=== PATIENT | male | born 1945 | race Caucasian/White ===

== ENCOUNTER 2017-10-30 10:42 | Emergency (ER) | payer BC, MEDICARE ==
[2017-10-30] MEDS ORDERED: ceFAZolin 1,000 MG VIAL IM STA (11:38)
[2017-10-30] MEDS ORDERED: LIDOCAINE 1% INJ 10MG/ML (20 ML MDV) SQ STA (11:47)
--- NOTE | 2017-10-30 12:28 | XR ---
EXAMINATION TYPE: XR finger RT DATE OF EXAM: 10/30/2017 COMPARISON: NONE HISTORY: Pain per order. TECHNIQUE: 3 views right fifth finger are acquired. FINDINGS: There is ossific fragmentation with a 4.9 and adjacent 4.4 mm ossific fracture fragments fa irly well-corticated with abrupt cut off of the distal phalanx felt to reflect product of old injury or trauma as there is no significant soft tissue swelling at this site. There is mild to moderate nawaf nt space loss with mild spurring at fifth PIP/DIP joints. Overlying soft tissue is unremarkable. IMPRESSION: As above. Age indeterminate displaced fracture favored old. Correlate clinically.
--- NOTE | 2017-10-30 13:07 | ED ---
Upper Extremity HPI - General Chief Complaint: Extremity Injury, Upper Stated Complaint: Smashed Finger-Sent by Time Seen by Provider: 10/30/17 11:22 Source: patient, RN/MD, RN notes reviewed, old records reviewed Mode of arrival: ambulatory Limitations: no limitations - History of Present Illness Initial Comments: This patient is a 71 year old male with right fifth digit injury while working in his garden. 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 He reports that the nail is removed. He does report sensation over distal tip of the finger. Tetanus was completed in March. MD Complaint: Injury to:: right, finger (5th) - Related Data Home Medications Medication Instructions Recorded Confirmed Multivitamin,Therapeutic [Thera] 1 tab PO DAILY 10/30/17 10/30/17 amLODIPine/ATORVASTATIN [Caduet 5 1 tab PO DAILY 10/30/17 10/30/17 mg-20 mg Tablet] Previous Rx's Medication Instructions Recorded Cephalexin [Keflex] 500 mg PO Q6HR #40 cap 10/30/17 HYDROcodone/APAP 5-325MG [Wayland 1 tab PO Q6HR PRN #10 tab 10/30/17 5-325] Allergies Allergy/AdvReac Type Severity Reaction Status Date / Time No Known Allergies Allergy Verified 10/30/17 11:51 Review of Systems ROS Statement: Those systems with pertinent positive or pertinent negative responses have been documented in the HPI. ROS Other: All systems not noted in ROS Statement are negative. Past Medical History Past Medical History: No Reported History History of Any Multi-Drug Resistant Organisms: None Reported Past Surgical History: No Surgical Hx Reported Past Psychological History: No Psychological Hx Reported Smoking Status: Never smoker Past Alcohol Use History: Occasional Past Drug Use History: None Reported General Exam - General Exam Comments Initial Comments: This is a 71 year old male, alert and oriented. Appears in moderate discomfort. Limitations: no limitations General appearance: alert, in no apparent distress Head exam: Present: atraumatic, normocephalic, normal inspection Eye exam: Present: normal appearance, PERRL, EOMI. Absent: scleral icterus, conjunctival injection, periorbital swelling ENT exam: Present: normal exam, mucous membranes moist Neck exam: Present: normal inspection. Absent: tenderness, meningismus, lymphadenopathy Cardiovascular Exam: Present: regular rate, normal rhythm, normal heart sounds. Absent: systolic murmur, diastolic murmur, rubs, gallop, clicks Right Hand Wrist exam: Present: full ROM, tenderness, swelling (over distal 5th digit) , nail avulsion (5th digit). Absent: normal inspection Hand L/R Back: 1 - Nail avulsion, and 3cm laceration. Vascular: Present: normal capillary refill Back exam: Present: normal inspection Neurological exam: Present: alert, oriented X3, CN II-XII intact Psychiatric exam: Present: normal affect, normal mood Skin exam: Present: warm Course Vital Signs 10/30/17 10/30/17 11:16 13:15 Temperature 98.0 F 98.3 F Pulse Rate 72 77 Respiratory 18 20 Rate Blood Pressure 179/68 165/89 O2 Sat by Pulse 100 99 Oximetry Procedures - Laceration Laceration #1 Site: hand (right fifth distal digit) Size (cm): 3 Description: avulsion (nail), irregular Depth: involves muscle layer Anesthetic Used: lidocaine 1% Anesthesia Technique: nerve block Amount (mls): 4 Pre-repair: wound explored, irrigated extensively Type of Sutures: nylon Size of Sutures: 5-0 Number of Sutures: 5 Technique: simple, interrupted Patient Tolerated Procedure: well, no complications Medical Decision Making - Medical Decision Making 71 year old male with right fifth digit injury after hitting it with a pole carrier driver tool. Patient has complete nail avulsion and evidence of a distal phalanx open fracture. Patient given 2 g kefzol. His tdap is up to date. Given 5 sutures to hold the distal tip of finger in place. Placed in tube gauze. Discussed case with HEIKE Thacker whom will see patient in office next week. Dicsussed finishing antibiotics. Discussed return parameters. - Radiology Data Radiology results: report reviewed Osseous fragment with a 4.9 x 4.4 mm ossific fracture fairly well-corticated with abrupt cutoff of the distal phalanx. Disposition Clinical Impression: Finger fracture, right, Nail avulsion, finger Disposition: HOME SELF-CARE Condition: Good Instructions: Finger Fracture (ED) Additional Instructions: Patient advised to follow-up with orthopedic podiatrist on Thursday. Keep the finger wrapped in a gauze. Take the antibiotics as prescribed. Return to the emergency department if any alarming signs or symptoms occur. Prescriptions: Cephalexin [Keflex] 500 mg PO Q6HR #40 cap HYDROcodone/APAP 5-325MG [Wayland 5-325] 1 tab PO Q6HR PRN #10 tab PRN Reason: Pain Is patient prescribed a controlled substance at d/c from ED?: No When asked, does pt state using other controlled substances?: No If prescribed controlled substance>3 days was MAPS reviewed?: No If opioid is for acute pain is fill amount 7 days or less?: No If Rx opioid, was Start Talking consent form obtained?: No Referrals: Jigna Amaya DO [Primary Care Provider] - 1-2 days Yasmani Gandara DO [Doctor of Osteopathic Medicine] - 1-2 days Time of Disposition: 13:05
[2017-10-30 13:22] VITALS: BP 165/89; PULSE 77; RESP 20; TEMP 98.3
== END 2017-10-30 13:15 | disposition home or self-care (01) ==
LOC: EC 10:42
DX: S62.636B Displaced fracture of distal phalanx of right little finger, initial encounter for open fracture (principal); Z79.899 Other long term (current) drug therapy; W22.8XXA Striking against or struck by other objects, initial encounter; Y93.89 Activity, other specified; Y92.007 Garden or yard of unspecified non-institutional (private) residence as the place of occurrence of the external cause
CPT/HCPCS: 73140; 99284; 12002; 96372; J0690; J2001

== ENCOUNTER → 2018-08-18 | Outpatient (CLI) | payer MEDICARE ==
[2018-08-18 17:02] LABS: Blood Urea Nitrogen 14 mg/dL (9-20)
--- NOTE | 2018-08-19 07:37 | CT ---
EXAMINATION TYPE: CT abdomen pelvis wo/w con DATE OF EXAM: 08/18/2018 COMPARISON: None HISTORY: Hernia CT DLP: 2274 mGycm CONTRAST: CT scan of the abdomen and pelvis is performed with Oral Contrast and without and with IV Contrast, p atient injected with 100 mL of Isovue 300. FINDINGS: LUNG BASES-: No visible nodule. No infiltrate. Calcified granulomas noted at the lung bases. LIVER/GB: No calcified gallstones. Tiny hepatic cysts and granulomas noted. Biliary tree is of norm al caliber. PANCREAS: No inflammation. No distinct mass. SPLEEN: No splenic enlargement. No lesion seen. Splenic granulomas identified. ADRENALS: No nodule. No thickening. KIDNEYS/BLADDER: No hydronephrosis. No nephrolithiasis. No distinct renal mass. Urinary bladder g rossly unremarkable. BOWEL: Normal appendix. Normal bowel caliber. No inflammation. GENITAL ORGANS: No gross abnormality. LYMPH NODES: No greater than 1cm abdominal or pelvic lymph nodes are appreciated. AORTA: No significant abnormality. OSSEOUS STRUCTURES: No significant abnormality is seen. OTHER: Fat-containing inguinal hernias left greater than right. Left-sided hernia measures 9 cm in le ngth and 4 cm in AP dimension. Right-sided inguinal hernia measures 3.5 x 1.6 cm. IMPRESSION: 1. Bilateral fat-containing inguinal hernias left greater than right as noted above.
== END | disposition home or self-care (01) ==
LOC: RADCTMAIN 15:09
PROVIDERS: ATTEND Family Medicine
DX: K40.20 Bilateral inguinal hernia, without obstruction or gangrene, not specified as recurrent (principal); R59.0 Localized enlarged lymph nodes
CPT/HCPCS: 82565; 84520; 74178; 36415; Q9967

== ENCOUNTER 2020-03-11 12:09 | Emergency (ER) | payer MEDICARE ==
[2020-03-11 12:25] VITALS: RESP 18; TEMP 98.1
[2020-03-11] MEDS ORDERED: MECLIZINE 12.5 MG TAB PO STA (13:24)
[2020-03-11] MEDS ORDERED: SODIUM CHLORIDE 0.9% 1,000 ML IV SCH (13:30)
[2020-03-11 13:48] LABS: Basophils # (A) 0.1 k/uL (0-0.2); Basophils % (A) 2 %; Eosinophils # (A) 0.3 k/uL (0-0.7); Eosinophils % (A) 5 %; HCT 47.9 % (39.0-53.0); HGB 16.5 gm/dL (13.0-17.5); Lymphocytes # (A) 1.5 k/uL (1.0-4.8); Lymphocytes % (A) 25 %; MCH 30.7 pg (25.0-35.0); MCHC 34.4 g/dL (31.0-37.0); MCV 89.2 fL (80.0-100.0); Mean Platelet Volume 6.9; Monocytes # (A) 0.5 k/uL (0-1.0); Monocytes % (A) 8 %; Neutrophils # (A) 3.5 k/uL (1.3-7.7); Neutrophils % (A) 59 %; Platelet Count 257 k/uL (150-450); RBC 5.37 m/uL (4.30-5.90); RDW 12.7 % (11.5-15.5); WBC 5.9 k/uL (3.8-10.6)
[2020-03-11 13:58] LABS: ALT 21 U/L (4-49); AST 21 U/L (17-59); African American GFR (CKD) >90 (>60 ml/min/1.73 sqM); Albumin 4.2 g/dL (3.5-5.0); Alkaline Phosphatase 91 U/L (38-126); Anion Gap 7 mmol/L; Blood Urea Nitrogen 15 mg/dL (9-20); Calcium 9.5 mg/dL (8.4-10.2); Carbon Dioxide 26 mmol/L (22-30); Chloride 104 mmol/L (98-107); Glucose 133 mg/dL (74-99); Non-African American GFR(CKD) 86 (>60 ml/min/1.73 sqM); Potassium 4.4 mmol/L (3.5-5.1); Sodium 137 mmol/L (137-145); Total Bilirubin 0.5 mg/dL (0.2-1.3); Total Protein 7.4 g/dL (6.3-8.2)
--- NOTE | 2020-03-11 14:29 | CT ---
EXAMINATION TYPE: CT brain wo con DATE OF EXAM: 03/11/2020 COMPARISON: None HISTORY: nausea, vomiting, dizziness CT DLP: 1025.4 mGycm Automated exposure control for dose reduction was used. There is 4.5 cm somewhat triangular-shaped area of hypodensity left cerebellar hemisphere consistent with subacute or old infarct. There is no mass effect. Fourth ventricle is in the midline. There is n o midline shift. There is no evidence of intracranial hemorrhage. The calvarium is intact. Ventricles have normal size. Skull base is intact. There is normal aeration of the mastoid sinuses. There is 1 cm hypodense focus in the anterior left centrum semiovale consistent with old lacunar infarct. IMPRESSION: Subacute ischemic infarct of 50% of the left cerebral hemisphere. Old lacunar infarct left centrum se miovale. No hemorrhage.
[2020-03-11] MEDS ORDERED: ASPIRIN 81 MG PO STA (14:48)
[2020-03-11] MEDS ORDERED: ASPIRIN 325 MG TAB PO STA (14:49)
--- NOTE | 2020-03-11 14:52 | XR ---
EXAMINATION TYPE: XR chest 2V DATE OF EXAM: 03/11/2020 COMPARISON: NONE HISTORY: Body aches. Pain. TECHNIQUE: 2 views FINDINGS: Heart is normal. Thoracic aorta is atheromatous. There are no hilar masses. Costophrenic an gles are clear. There are chest leads. Lungs are clear of consolidation. There is slight coarsening of the lower lobe markings. IMPRESSION: Mild pulmonary fibrotic changes. No acute lung disease. Normal heart.
--- NOTE | 2020-03-11 14:55 | ED ---
Nausea/Vomiting/Diarrhea HPI - General Chief complaint: Nausea/Vomiting/Diarrhea Stated complaint: dizzy, N/V/D Time Seen by Provider: 03/11/20 12:43 Source: patient Mode of arrival: ambulatory Limitations: no limitations - History of Present Illness Initial comments: 74-year-old male presents for 1 week of dizziness. Patient states a week ago he had sudden onset of headache and dizziness. Patient states that the headache went away shortly after he states he had diarrhea that night the last for 3 days and the dizziness persisted. Patient sates he also had vomiting at that time. Patient denies additional episodes of vomiting. He denied visual changes speech changes changes and thought pattern. Patient denies any different cultivator articulate and speech he denied any weakness of the upper or lower extremities or sensation deficits. Patient states he did feel very off balance like he was going to fall if he walked. Patient denies any sensation that he is going to pass out or lightheadedness denies any chest pain shortness of breath. Patient denies double vision. Patient is no additional complaints he denies experiencing this for the past upon arrival patient is very pleasant no obvious deficits - Related Data Home Medications Medication Instructions Recorded Confirmed Multivitamin,Therapeutic [Thera] 1 tab PO DAILY 10/30/17 03/11/20 amLODIPine/ATORVASTATIN [Caduet 5 1 tab PO DAILY 10/30/17 03/11/20 mg-20 mg Tablet] Allergies Allergy/AdvReac Type Severity Reaction Status Date / Time No Known Allergies Allergy Verified 03/11/20 15:26 Review of Systems ROS Statement: Those systems with pertinent positive or pertinent negative responses have been documented in the HPI. ROS Other: All systems not noted in ROS Statement are negative. Past Medical History Past Medical History: Hyperlipidemia, Hypertension History of Any Multi-Drug Resistant Organisms: None Reported Past Surgical History: No Surgical Hx Reported Past Psychological History: No Psychological Hx Reported Smoking Status: Never smoker Past Alcohol Use History: Occasional Past Drug Use History: None Reported General Exam - General Exam Comments Initial Comments: General: The patient is awake and alert, in no distress Eye: =3 mm pupils are equal, round and reactive to light, extra-ocular movements are intact. No nystagmus. There is normal conjunctiva bilaterally. No signs of icterus. Ears, nose, mouth and throat: There are moist mucous membranes and no oral lesions. Neck: The neck is supple, there is no tenderness or JVD. Cardiovascular: There is a regular rate and rhythm. No murmur, rub or gallop is appreciated. Respiratory: Lungs are clear to auscultation, respirations are non-labored, breath sounds are equal. No wheezes, stridor, rales, or rhonchi. Musculoskeletal: Normal ROM, no tenderness. Strength 5/5 of the UE and LE b/l. Sensation intact of the UE and LE b/l. Radidal pulses equal bilaterally 2+. Neurological: A&O x 3. CN II-XII intact, There are no obvious motor or sensory deficits. Coordination appears grossly intact. Speech is normal. Slight ataxia with gait. However finger-nose heel and banks appear smooth and coordinated as well as hand flat. No pronator drift. Skin: Skin is warm and dry and no rashes or lesions are noted. Psychiatric: Cooperative, appropriate mood & affect, normal judgment. Limitations: no limitations Course Vital Signs 03/11/20 03/11/20 03/11/20 12:22 13:46 14:25 Temperature 98.1 F Pulse Rate 79 70 66 Respiratory 18 18 18 Rate Blood Pressure 195/93 173/95 177/88 O2 Sat by Pulse 98 97 98 Oximetry Medical Decision Making - Medical Decision Making Labs stable. Subacute infarct on CT cerebellar. No hemorrhage. Patient symptoms clinically correlate, began 1 week ago. Patient CTA (-). Patient EKG no acute changes. On telemetry. Aspirin given in ER. Neurolgoist Dr. Du consulted, discussed report, clinical findings and PMH. Recommend aspirin and admission to medicine with neurology on consult she states herself or Jessica Monte will evaluate the patient wihin 24 hours. Patient agreeable to admission. No acute changes in the ER. Attending provider Dr. Healy agreeable to care plan - Lab Data Result diagrams: 03/11/20 13:25 03/11/20 13:25 Lab Results 03/11/20 03/11/20 03/11/20 Range/Units 13:25 13:25 13:25 WBC 5.9 (3.8-10.6) k/uL RBC 5.37 (4.30-5.90) m/uL Hgb 16.5 (13.0-17.5) gm/dL Hct 47.9 (39.0-53.0) % MCV 89.2 (80.0-100.0) fL MCH 30.7 (25.0-35.0) pg MCHC 34.4 (31.0-37.0) g/dL RDW 12.7 (11.5-15.5) % Plt Count 257 (150-450) k/uL Neutrophils % 59 % Lymphocytes % 25 % Monocytes % 8 % Eosinophils % 5 % Basophils % 2 % Neutrophils # 3.5 (1.3-7.7) k/uL Lymphocytes # 1.5 (1.0-4.8) k/uL Monocytes # 0.5 (0-1.0) k/uL Eosinophils # 0.3 (0-0.7) k/uL Basophils # 0.1 (0-0.2) k/uL Sodium 137 (137-145) mmol/L Potassium 4.4 (3.5-5.1) mmol/L Chloride 104 (98-107) mmol/L Carbon Dioxide 26 (22-30) mmol/L Anion Gap 7 mmol/L BUN 15 (9-20) mg/dL Creatinine 0.87 (0.66-1.25) mg/dL Est GFR (CKD-EPI)AfAm >90 (>60 ml/min/1.73 sqM) Est GFR (CKD-EPI)NonAf 86 (>60 ml/min/1.73 sqM) Glucose 133 H (74-99) mg/dL Calcium 9.5 (8.4-10.2) mg/dL Total Bilirubin 0.5 (0.2-1.3) mg/dL AST 21 (17-59) U/L ALT 21 (4-49) U/L Alkaline Phosphatase 91 (38-126) U/L Troponin I (0.000-0.034) ng/mL Total Protein 7.4 (6.3-8.2) g/dL Albumin 4.2 (3.5-5.0) g/dL Coronavirus (PCR) Not Detected (Not Detectd) 03/11/20 Range/Units 13:25 WBC (3.8-10.6) k/uL RBC (4.30-5.90) m/uL Hgb (13.0-17.5) gm/dL Hct (39.0-53.0) % MCV (80.0-100.0) fL MCH (25.0-35.0) pg MCHC (31.0-37.0) g/dL RDW (11.5-15.5) % Plt Count (150-450) k/uL Neutrophils % % Lymphocytes % % Monocytes % % Eosinophils % % Basophils % % Neutrophils # (1.3-7.7) k/uL Lymphocytes # (1.0-4.8) k/uL Monocytes # (0-1.0) k/uL Eosinophils # (0-0.7) k/uL Basophils # (0-0.2) k/uL Sodium (137-145) mmol/L Potassium (3.5-5.1) mmol/L Chloride (98-107) mmol/L Carbon Dioxide (22-30) mmol/L Anion Gap mmol/L BUN (9-20) mg/dL Creatinine (0.66-1.25) mg/dL Est GFR (CKD-EPI)AfAm (>60 ml/min/1.73 sqM) Est GFR (CKD-EPI)NonAf (>60 ml/min/1.73 sqM) Glucose (74-99) mg/dL Calcium (8.4-10.2) mg/dL Total Bilirubin (0.2-1.3) mg/dL AST (17-59) U/L ALT (4-49) U/L Alkaline Phosphatase (38-126) U/L Troponin I <0.012 (0.000-0.034) ng/mL Total Protein (6.3-8.2) g/dL Albumin (3.5-5.0) g/dL Coronavirus (PCR) (Not Detectd) Disposition Clinical Impression: Nausea & vomiting, Diarrhea, Cerebellar infarct Disposition: ADMITTED IP TO THIS HOSP Condition: Stable Is patient prescribed a controlled substance at d/c from ED?: No Referrals: Jigna Amaya DO [Primary Care Provider] - 1-2 days Time of Disposition: 16:07 Decision to Admit Reason: Admit from EC Decision Date: 03/11/20 Decision Time: 14:40
--- NOTE | 2020-03-11 15:21 | CT ---
EXAMINATION TYPE: CT angio head neck DATE OF EXAM: 03/11/2020 COMPARISON: None HISTORY: abnormal prior ct CT DLP: 416.1 mGycm Automated exposure control for dose reduction was used. CONTRAST: Performed with IV Contrast, patient injected with 65 mL of Isovue 370. Images were obtained from the aortic arch to the vertex of the brain with IV contrast and 3-D post pr ocessed images. FINDINGS: There is normal branching pattern of the great vessels on the aortic arch. There is bilateral arteria l flow in the subclavian arteries. There is arterial flow in the common internal and external carotid arteries bilaterally. There is no significant plaque formation. There is arterial flow in both verte bral arteries which are fairly symmetric. There is arterial flow in the vertebrobasilar artery system . There is no evidence of carotid or vertebral artery aneurysm or dissection. There is arterial flow in the anterior middle and posterior cerebral arteries. There is normal contra st opacification of the venous sinuses. I see no pathologic enhancement. There is no mass effect. The re is no sign of intracranial aneurysm or neovascularity. There is no evidence of arterial stenosis. IMPRESSION: Negative CT angiogram of the neck. Negative CT angiogram of the brain. Inferior left side cerebellar hemisphere infarct noted.
[2020-03-11 16:41] VITALS: BP 176/89; PULSE 90
--- NOTE | 2020-03-12 08:39 | CONS ---
CONSULTATION DATE OF CONSULTATION: 03/11/2020 REASON FOR CONSULTATION: Advice regarding stroke and other medical issues, requested by ER physician. HISTORY OF PRESENT ILLNESS: This 74-year-old gentleman with a past medical history of multiple dementia, hypertension, hyperlipidemia, being followed by Dr. Gonsalez in the outpatient is complaining of flu-like symptoms a week ago. Subsequently, patient had episodes of nausea, vomiting, and the patient also felt some dizziness. The patient also had difficulty walking patient also had apparently progress report worse and the patient came to [facility] and was admitted for further evaluation and treatment. The patient feels like the patient is walking like a drunk and the patient was noted to have left-sided minimal cerebellar signs and CAT scan of the brain was done in the ER which I reviewed personally, which showed significant ischemic infarct in involving the more than about 50% of the left-sided cerebellar hemisphere, old lateral infarct in the left centrum ovale also noted. The patient also had occipital headache and onset of the dizziness. The CT angiogram was also reviewed. The chest x-ray was also reviewed and the EKG showed some intraventricular conduction defects, otherwise grossly normal. There is no history of fever,rigors no headache, loss any loss of consciousness, seizures at this time. PAST MEDICAL HISTORY: History hypertension, hyperlipidemia. MEDICATIONS: Prior to admission home medications are Norvasc, 85 mg 5/20 mg p.o. daily next multivitamin 1 p.o. daily. ALLERGIES: None. FAMILY HISTORY: History of strokes family. SOCIAL HISTORY: No smoking, occasional alcohol intake. REVIEW OF SYSTEMS: ENT mentioned earlier. Cardiovascular no angina respiration no cough. GI no nausea. no dysuria NERVOUS SYSTEM: As mentioned earlier. Allergies/Immunology: No asthma or hayfever. MUSCULOSKELETAL: As mentioned earlier. HEMATOLOGY/ONCOLOGY/ ENDOCRINE: No history of diabetes hypothyroidism. CONSTITUTIONAL: As mentioned earlier. DERMATOLOGY: Negative. RHEUMATOLOGY negative. PSYCHIATRY as mentioned earlier. PHYSICAL EXAM: Patient is alert, oriented x2. Pulse is blood pressure 176/80, respiration 18, temperature 98.1, pulse ox 98% on room air HEENT: Conjunctivae normal. Oral mucosa moist. Neck is no jugular venous distention. No lymph node enlargement CARDIOVASCULAR: No angina or palpitations. RESPIRATORY: Respiration heard at the bases, no rhonchi. ABDOMEN: Soft, nontender. No mass palpable legs no edema. NERVOUS SYSTEM: Higher functions as mentioned earlier. Cranial nerves 2nd grossly intact. There is minimal left-sided cerebellar signs gait ataxic gait. SKIN: no ulcer, rash. JOINTS: No active deforming arthropathy. LABS: At this time show CBC within normal limits, glucose 133, Covid [address] scan chest x-ray, EKG reviewed. ASSESSMENT: 1. Acute to subacute left cerebellar infarction. 2. Gait dysfunction. 3. Hypertension. 4. Hyperlipidemia. 5. COVID 19 rapid test is negative. RECOMMENDATIONS: This 71-year-old gentleman who presented with multiple medical issues, at this time I recommend a neurology consultation and complete neurovascular assessment. I would recommend since the Neurologist is not available this week and I would recommend referral to tertiary care center for continued monitoring. The patient also has some hypertension. hypertension also recommended. COVID-19 is negative. We will continue to monitor the patient as mentioned. Patient had full workup including MRI which is also not available at this time. So, as mentioned earlier, patient referred to tertiary care center and thank you for letting us participate in the care of this patient. The patient may be asked to follow up with Dr. Gonsalez closely after discharge. MMODL / IJN: [id number] / PEDRO
[2020-03-12] MEDS ORDERED: ASPIRIN 325 MG TAB PO SCH (09:00)
== END 2020-03-11 19:28 | disposition other institution (70) ==
LOC: EC 12:09 → 3SCARD 16:22 → UNDOADMIN 16:22 → 3SCARD 17:13 → EC 19:28
DX: I63.9 Cerebral infarction, unspecified (principal); R11.2 Nausea with vomiting, unspecified; R19.7 Diarrhea, unspecified; R51.9 Headache, unspecified; R42 Dizziness and giddiness; Z20.828 Contact with and (suspected) exposure to other viral communicable diseases; I10 Essential (primary) hypertension; Z79.899 Other long term (current) drug therapy
CPT/HCPCS: 36415; 93005; 80053; 84484; 85025; 87635; 71046; 70496; 70450; 70498; 99285; 96360; 96361 ×4; Q9967

== ENCOUNTER → 2022-04-15 | Outpatient (CLI) | payer MEDICARE ==
--- NOTE | 2022-04-15 09:47 | US ---
EXAMINATION TYPE: US duplex aorta DATE OF EXAM: 04/15/2022 COMPARISON: NONE CLINICAL HISTORY: Z13.6 ENCOUNTER FOR SCREENING FOR CARDIOVASCULAR D. TECHNIQUE: Multiple sonographic images of the abdominal aorta are obtained. FINDINGS: EXAM MEASUREMENTS: Abdominal Aorta: Proximal: obscured by overlying bowel gas Mid: 1.2cm Distal: 0.9cm Bifurcation: Right: 0.9 Left: 0.9 [employer] NOTES: Proximal portion of aorta obscured. No ultrasound evidence of AAA. IMPRESSION: No evidence for abdominal aortic aneurysm.
== END | disposition home or self-care (01) ==
LOC: RADUSWWP 09:14
PROVIDERS: ATTEND Family Medicine
DX: Z13.6 Encounter for screening for cardiovascular disorders (principal)
CPT/HCPCS: 93979